=== PATIENT | female | born 2000 | race Caucasian/White ===

== ENCOUNTER 2020-06-26 20:33 | Emergency (ER) | payer BC, SELFPAY ==
[2020-06-26 21:13] VITALS: BP 120/78; PULSE 74; RESP 14; TEMP 36.4; O2SAT 97; BMI 30.2
--- NOTE | 2020-06-26 21:30 | XR_ITS ---
WS: [id number] KUB, 06/26/2020 Clinical Data: abd pain Comparison: None. Findings: No abnormal intraabdominal masses or calcifications are seen. There is no dilatated small bowel or ev idence of obstruction. There is fecal material in the rectum. XR/XR KUB portable [id number] Impression: Negative KUB.
--- NOTE | 2020-06-26 21:35 | W.ED.ABDPA2 ---
HPI - Abdominal Pain General: Chief Complaint: Abdominal Pain Stated Complaint: constipation/nausea Time Seen by Provider: 06/26/20 21:35 History of Present Illness: HPI narrative: Patient is a 20-year-old female who comes to the ED with constipation, nausea and abdominal pain. Patient says symptoms started yesterday. Patient describes being very constipated yesterday and having to strain and pushed out a very large hard stool. Patient reports having some red blood on toilet paper when she wiped. Today patient woke up and started having some lower abdominal pain. Patient currently rates the pain a 4 out of 10. She describes pain as a cramping feeling. Patient says she has had a feeling like she needs to have a bowel movement today but when she tries she is unsuccessful in getting anything out. During the day patient started developing some nausea and had multiple episodes of emesis. Patient did state that she took a laxative at 930 this morning. Endorses chills and increased urine frequency.. Denies fever, shortness of breath, chest pain, dysuria, hematuria. Patient denies any chance of being and says her last period was 2 weeks ago. Associated Symptoms: Reports chills, constipation, hematochezia (Patient reports having some red blood on toilet paper when she wiped after having a bowel movement that was hard and she had to strain a lot.), nausea and vomiting; Denies diarrhea, dysuria, fever(s) and hematuria Review of Systems Const: Reports: chills; Denies: fever(s) or fatigue Eyes: Denies: change in vision or eye discomfort ENMT: Denies: throat pain, odynophagia, nasal discharge or nasal congestion Card: Denies: chest pain, palpitations, edema, swelling of feet/ankles, dyspnea on exertion or orthopnea Resp: Denies: dyspnea, productive cough or non-productive cough GI: Reports: abdominal pain, nausea, vomiting, constipation and hematochezia (Patient reports having some red blood on toilet paper when she wiped after having a bowel movement that was hard and she had to strain a lot.); Denies: diarrhea : Denies: flank pain, dysuria or hematuria Musc: Denies: neck pain, back pain or extremity swelling Skin/Breast: Denies: rash or new lesions Neuro: Denies: headache(s), numbness in extremities or weakness in extremities Physical Exam Const: COMMON NORMALS: no acute distress, patient oriented x3, healthy appearing and alert GENERAL APPEARANCE: cooperative and comfortable HENMT: COMMON NORMALS: normocephalic HEAD & SCALP: normocephalic MOUTH: Normal oral and palatal mucosa present THROAT: posterior oropharynx normal and uvula midline Eye: COMMON NORMALS: Equal, round and reactive pupils present PUPIL: Yes Equal, round and reactive pupils present Neck/C-Spine: COMMON NORMALS: supple GENERAL: Yes normal visual inspection Resp: COMMON NORMALS: normal respiratory effort, No retractions, No use of accessory muscles and clear to auscultation bilaterally EFFORT & INSPECTION: Yes able to speak in complete sentences, No tachypneic, No respiratory distress and No labored AUSCULTATION: clear to auscultation bilaterally Cardio: COMMON NORMALS: regular rate, regular rhythm, S1 normal heart sound present, S2 normal heart sound present, No gallops present (Cardio), No clicks present (Cardio), No murmurs present (Cardio) and Peripheral pulses 2+ throughout RATE: regular rate RHYTHM: regular rhythm HEART SOUNDS: S1 normal heart sound present and S2 normal heart sound present PERIPHERAL PULSES: Peripheral pulses 2+ throughout GI: COMMON NORMALS: Normal to inspection, nondistended, normoactive bowel sounds present, Soft to palpation and no masses PALPATION: Yes Soft to palpation and Yes Tenderness to palpation present (GI) Details: LLQ (mild) and other (Mild tenderness along the mid line of lower abdomen.) : COMMON NORMALS: Yes no CVA tenderness BLADDER/KIDNEY EXAM: Yes no CVA tenderness Back/Pelvis: COMMON NORMALS: no CVA tenderness Extremity: COMMON NORMALS: normal to inspection and no pedal edema Neuro: COMMON NORMALS: patient oriented x3 SENSORIUM/ORIENTATION: Yes alert GAIT: Yes Normal gait present Skin: COMMON NORMALS: no rashes or lesions noted GENERAL SKIN EXAM: no rashes or lesions noted and dry skin Course Reevaluation(s): Reevaluation #1: I went in to see patient after she received a milk of molasses enema. Patient said she had a large bowel movement that was hard. She says she feels a lot better now after having bowel movement. Time: 00:16 Vital Signs: Vital signs: Vital Signs Temperature 97.5 F L 06/26/20 21:13 Pulse Rate 52 L 06/27/20 00:27 Respiratory Rate 16 06/27/20 00:27 Blood Pressure 104/43 06/27/20 00:27 Pulse Oximetry 98 06/27/20 00:27 MDM - Abdominal Pain MDM Narrative: Medical decision making narrative: Patient is a 20-year-old female comes to the ED with abdominal pain and constipation. CBC, CMP, lipase unremarkable. hCG negative and UA did not indicate any blood or bacteria in the urine. KUB showed a large mass of stool in rectum. Patient was given a milk of molasses enema and she passed a large mass of stool. Patient said she immediately felt a lot better. Patient was diagnosed with fecal impaction and discharged. She was sent home with a prescription for MiraLAX. She was told to drink plenty of fluids and eat a high-fiber diet. Return to ED precautions given. Follow-up with PCP in 7 to 10 days. Patient understood and agreed with plan. Lab Data: Attestation: I reviewed the patient's lab results. Labs: Lab Results 06/26/20 06/26/20 06/26/20 Range/Units 22:10 22:10 23:19 WBC 10.3 (4.5-13.0) 10^3/ uL RBC 4.69 (4.1-5.3) 10^6/u L Hgb 13.5 (11.5-15.3) g/dL Hct 40.7 (37.0-47.0) % MCV 86.8 (81-99) fL MCH 28.8 (28.0-34.0) pg MCHC 33.2 (30.0-36.0) g/dL RDW 12.2 (12.1-15.1) % Plt Count 299 (130-400) 10^3/c mm MPV 11.3 H (7.4-10.4) fL Neut % (Auto) 62.6 % Lymph % (Auto) 26.1 % [place] % (Auto) 9.0 % Eos % (Auto) 1.7 % Baso % (Auto) 0.4 % Neut # (Auto) 6.43 (1.8-8.0) 10^3/u L Lymph # (Auto) 2.7 (1.5-6.5) 10^3/u L [place] # (Auto) 0.9 (0.2-0.9) 10^3/u L Eos # (Auto) 0.2 (0.0-0.8) 10^3/u L Baso # (Auto) 0.0 (0.0-0.1) 10^3/u L Nucleated RBC % (a uto) 0 % Nucleated RBCs # 0.0 /100WBC Sodium 138 (136-145) mmol/L Potassium 3.6 (3.5-5.1) mmol/L Chloride 104 (98-107) mmol/L Carbon Dioxide 24 (22-29) mmol/L Anion Gap 13.6 (5-19) BUN 10 (6-20) mg/dL Creatinine 0.8 (0.5-0.9) mg/dL GFR Calculation 91.4 (90-130) mL/min Glucose 110 (65-115) mg/dL Calculated Osmolal ity 283 L (285-295) mOsm/k g Calcium 9.4 (8.5-10.5) mg/dL Total Bilirubin 0.3 (0.15-1.2) mg/dL AST 27 (0-32) U/L ALT 13 (0-33) U/L Alkaline Phosphata se 82 (35-105) IU/L Total Protein 7.6 (6.6-8.7) g/dL Albumin 4.5 (3.5-5.2) g/dL Globulin 3.1 (1.3-4.6) g/dL Lipase 22 (13-60) U/L HCG, Qual Negative (Negative) Urine Color (Yellow) Urine Appearance (CLEAR) Urine pH (5-7) Ur Specific Gravit y (1.005-1.030) Urine Protein (Negative) Urine Glucose (UA) (Normal) Urine Ketones (Negative) Urine Blood (Negative) Urine Nitrate (Negative) Urine Bilirubin (NEGATIVE) Urine Urobilinogen (Negative) mg/dL Ur Leukocyte Karen ase (Negative) 06/26/20 Range/Units 23:19 WBC (4.5-13.0) 10^3/ uL RBC (4.1-5.3) 10^6/u L Hgb (11.5-15.3) g/dL Hct (37.0-47.0) % MCV (81-99) fL MCH (28.0-34.0) pg MCHC (30.0-36.0) g/dL RDW (12.1-15.1) % Plt Count (130-400) 10^3/c mm MPV (7.4-10.4) fL Neut % (Auto) % Lymph % (Auto) % [place] % (Auto) % Eos % (Auto) % Baso % (Auto) % Neut # (Auto) (1.8-8.0) 10^3/u L Lymph # (Auto) (1.5-6.5) 10^3/u L [place] # (Auto) (0.2-0.9) 10^3/u L Eos # (Auto) (0.0-0.8) 10^3/u L Baso # (Auto) (0.0-0.1) 10^3/u L Nucleated RBC % (a uto) % Nucleated RBCs # /100WBC Sodium (136-145) mmol/L Potassium (3.5-5.1) mmol/L Chloride (98-107) mmol/L Carbon Dioxide (22-29) mmol/L Anion Gap (5-19) BUN (6-20) mg/dL Creatinine (0.5-0.9) mg/dL GFR Calculation (90-130) mL/min Glucose (65-115) mg/dL Calculated Osmolal ity (285-295) mOsm/k g Calcium (8.5-10.5) mg/dL Total Bilirubin (0.15-1.2) mg/dL AST (0-32) U/L ALT (0-33) U/L Alkaline Phosphata se (35-105) IU/L Total Protein (6.6-8.7) g/dL Albumin (3.5-5.2) g/dL Globulin (1.3-4.6) g/dL Lipase (13-60) U/L HCG, Qual (Negative) Urine Color Yellow (Yellow) Urine Appearance Clear (CLEAR) Urine pH 6 (5-7) Ur Specific Gravit y 1.015 (1.005-1.030) Urine Protein Neg (Negative) Urine Glucose (UA) Norm (Normal) Urine Ketones Negative (Negative) Urine Blood Neg (Negative) Urine Nitrate Negative (Negative) Urine Bilirubin Neg (NEGATIVE) Urine Urobilinogen Norm (Negative) mg/dL Ur Leukocyte Karen ase Negative (Negative) Imaging Data ^: KUB: Attestation: I personally reviewed and interpreted this imaging study as follows: My impression: KUB shows large amount and mass of stool in rectum. Discharge Plan Discharge Patient Disposition: Home Clinical Impression: Fecal impaction Condition: Stable Prescriptions: New Miralax 17 gram/dose powder 17 gm PO DAILY PRN (Reason: constipation) Qty: 119 RF: 0 Discharge Orders: Discharge Order (Routine); Ordered 06/27/20 Ordered By: Yony Yi Discharge Diet: Regular Discharge Activity: Resume usual activity Patient Instructions: High Fiber Diet (ED), Fecal Impaction (ED) Activity Restrictions/Additional Instructions: Follow-up with medical provider as directed in 7-10 days. Take medications as prescribed. Drink plenty of fluids and try to eat a high-fiber diet including fruits and vegetables. Return to the ER or your medical provider if condition worsens. Please read and understand discharge instructions. If any questions, please ask. Stand Alone Forms: Work/School Release Discharge Date/Time: 06/27/20 00:31 Coding Level of Care Code ED [employer] for [employer] Fwd Exam Comprehensive
[2020-06-26 21:46] VITALS: BP 131/69; PULSE 59; RESP 16; O2SAT 100
[2020-06-26 22:21] LABS: Basophils % 0.4 %; Eosinophils # 0.2 10^3/uL (0.0-0.8); Eosinophils % 1.7 %; Hematocrit 40.7 % (37.0-47.0); Hemoglobin 13.5 g/dL (11.5-15.3); Lymphocytes # 2.7 10^3/uL (1.5-6.5); Lymphocytes % 26.1 %; Mean Corpuscular HGB Conc 33.2 g/dL (30.0-36.0); Mean Corpuscular Hemoglobin 28.8 pg (28.0-34.0); Mean Corpuscular Volume 86.8 fL (81-99); Mean Platelet Volume 11.3 fL (7.4-10.4); Monocytes # 0.9 10^3/uL (0.2-0.9); Neutrophils # 6.43 10^3/uL (1.8-8.0); Neutrophils % 62.6 %; Nucleated Red Blood Cells % 0 %; Platelet Count 299 10^3/cmm (130-400); Red Blood Count 4.69 10^6/uL (4.1-5.3); Red Cell Distribution Width 12.2 % (12.1-15.1); White Blood Count 10.3 10^3/uL (4.5-13.0)
[2020-06-26 22:23] VITALS: RESP 15; O2SAT 99
[2020-06-26] MEDS: ondansetron 2 mg/ML SDV 2 mL 4 MG IVP (22:23)
[2020-06-26] MEDS: morphine 4 mg/mL SDV 1 mL IVP (22:23)
[2020-06-26] MEDS: sodium chloride 0.9% 1,000 ML 999 ML IV (22:23)
[2020-06-26 22:25] VITALS: BP 113/65; PULSE 62; RESP 15; O2SAT 100
[2020-06-26 22:38] LABS: Alanine Aminotransferase 13 U/L (0-33); Albumin Level 4.5 g/dL (3.5-5.2); Alkaline Phosphatase 82 IU/L (35-105); Anion Gap 13.6 (5-19); Aspartate Amino Transferase 27 U/L (0-32); Blood Urea Nitrogen 10 mg/dL (6-20); Calcium 9.4 mg/dL (8.5-10.5); Carbon Dioxide 24 mmol/L (22-29); Chloride 104 mmol/L (98-107); Globulin 3.1 g/dL (1.3-4.6); Glomerular Filtration Rate 91.4 mL/min (90-130); Glucose 110 mg/dL (65-115); Lipase 22 U/L (13-60); Osmolality Calculated 283 mOsm/kg (285-295); Potassium 3.6 mmol/L (3.5-5.1); Sodium 138 mmol/L (136-145); Total Bilirubin 0.3 mg/dL (0.15-1.2); Total Protein 7.6 g/dL (6.6-8.7)
[2020-06-26 23:05] VITALS: BP 107/48; PULSE 55; RESP 16; O2SAT 100
--- NOTE | 2020-06-26 23:07 | PC.NURSE ---
PATIENT AMBULATED TO BATHROOM FOR NURSE
[2020-06-26 23:40] LABS: Add Urine Microscopic? NO
[2020-06-26 23:50] LABS: Bilirubin Urine Neg (NEGATIVE); Blood Urine Neg (Negative); Glucose Urine UA Norm (Normal); Ketones Urine Negative (Negative); Leukocyte Esterase Urine Negative (Negative); Nitrate Urine Negative (Negative); Protein Urine Neg (Negative); Specific Gravity, Urine 1.015 (1.005-1.030); Urine Appearance Clear (CLEAR); Urine Color Yellow (Yellow); Urobilinogen Urine Norm (Negative); pH Urine 6 (5-7)
[2020-06-26 23:56] LABS: HCG Qualitative Urine. Negative (Negative)
[2020-06-26 23:58] VITALS: BP 117/57; PULSE 57; RESP 16; O2SAT 98
[2020-06-27 00:27] VITALS: BP 104/43; BP 140/45; PULSE 52; PULSE 59; RESP 15; RESP 16; O2SAT 98
== END 2020-06-27 00:31 | disposition home or self-care (01) ==
PROVIDERS: Emergency Medicine; Emergency Provider Physician Assistant
DX: K56.41 Fecal impaction (principal)
CPT/HCPCS: 12345; 74018; 80053; 81003; 81025; 83690; 85025; 96360; 96361; 96374; 96375; 99283; J2270; J2405; J7030

== ENCOUNTER → 2023-08-06 10:04 | Outpatient (BNVA) | payer BC, SELFPAY | PROVIDERS: Visit Provider Nurse Practitioner Family | DX: R21 Rash and other nonspecific skin eruption (principal); F32.A Depression, unspecified | CPT/HCPCS: 86787 ==